=== PATIENT | male | born 1960 | race Caucasian/White ===

== ENCOUNTER 2017-04-14 20:48 | Inpatient (IN) | payer OTHER ==
[~2017-04-14] VITALS: Ht 182.9 cm; Wt 75.0 kg
[2017-04-14 23:29] LABS: BASOPHIL % 0.5 % (0-2); PLATELET COUNT 282 x10^3mcL (130-400); RED CELL DISTRIBUTION WIDTH 12.5 % (11.5-14.5)
[2017-04-14 23:43] LABS: CARBON DIOXIDE 26.9 mmol/L (21-32); CREATININE SERUM 1.8 mg/dL (0.7-1.3); POTASSIUM SERUM 3.6 mmol/L (3.5-5.1)
[2017-04-14 23:48] LABS: ALBUMIN 3.7 g/dL (3.4-5.0); TOTAL PROTEIN, SERUM 7.6 g/dL (6.4-8.2)
[2017-04-15] VITALS (7 sets, daily range): BP systolic 118–129; BP diastolic 78–89
[2017-04-15 00:35] LABS: UA SPECIFIC GRAVITY 1.025 (1.005-1.035); microscopic required? YES; urine erythrocyte 3+ (NEGATIVE)
[2017-04-15] MEDS ORDERED: ASPIR 8181 MG PO (01:27)
[2017-04-15] MEDS ORDERED: ATORVASTATIN CA40 M1 PO (01:27)
[2017-04-15] MEDS ORDERED: GLIPIZIDE5 M2 PO (01:27)
[2017-04-15] MEDS ORDERED: HYDROXYZINE PAM25 MG PO (01:28)
[2017-04-15] MEDS ORDERED: VIS25 PO (01:28)
[2017-04-15] MEDS ORDERED: ZESTRIL20 MG PO (01:29)
[2017-04-15] MEDS ORDERED: METFORMIN HCL1000 MG PO (01:29)
[2017-04-15] MEDS ORDERED: PHE25 PO (01:30)
[2017-04-16 05:06] VITALS: BP 121/82
[2017-04-16 05:50] LABS: BASOPHIL % 0.3 % (0-2); PLATELET COUNT 246 x10^3mcL (130-400); RED CELL DISTRIBUTION WIDTH 12.6 % (11.5-14.5)
[2017-04-16 05:56] LABS: CALCIUM 8.2 mg/dL (8.5-10.1); CARBON DIOXIDE 25.7 mmol/L (21-32); CHLORIDE SERUM 108 mmol/L (98-107); CREATININE SERUM 1.2 mg/dL (0.7-1.3); GFR1 > 60 mL/min; GLUCOSE SERUM 149 mg/dL (74-106); POTASSIUM SERUM 3.9 mmol/L (3.5-5.1); SODIUM SERUM 142 mmol/L (136-145)
[2017-04-16 09:37] VITALS: BP 136/87
[2017-04-16 12:58] VITALS: BP 136/86
[2017-04-16 13:23] VITALS: BP 136/86
[2017-04-16 17:21] VITALS: BP 127/88
== END 2017-04-16 17:37 | disposition other institution (70) | DRG 694 ==
LOC: ED 20:48 → DU 04-15 01:02
PROVIDERS: Emergency Medicine; ADMIT Internal Medicine
DX: N13.30 Unspecified hydronephrosis (principal); N20.1 Calculus of ureter; F32.9 Major depressive disorder, single episode, unspecified; I10 Essential (primary) hypertension; E11.9 Type 2 diabetes mellitus without complications; N23 Unspecified renal colic; N39.0 Urinary tract infection, site not specified; N17.9 Acute kidney failure, unspecified; N12 Tubulo-interstitial nephritis, not specified as acute or chronic; Z86.73 Personal history of transient ischemic attack (TIA), and cerebral infarction without residual deficits
CPT/HCPCS: 82962; J0696; J1885; J1956; J3490; J7030; J7040; Q0177